=== PATIENT | male | born 1990 | race Caucasian/White ===

== ENCOUNTER 2018-02-08 17:48 | Emergency (ER) | payer SELFPAY ==
[2018-02-08 18:42] VITALS: BP 127/79
[2018-02-08] MEDS ORDERED: Tetan/Diph/Pertus SYR(Tdap)* 0.5 ML SYR(BOOSTRIX) use SYR IM ONE (18:52)
[2018-02-08] MEDS ORDERED: cefTRIAXone VIAL(*) 1,000 MG VIAL IM ONE (18:52)
--- NOTE | 2018-02-08 18:52 | UC ---
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 pt squeezed and picked at site because he can get the splints out but nothing came out. today, the spot on the finger is red and swollen plus he has a red streak up to his elbow. no hx mrsa, fever or joint pain. last tetanus is not known - History of Current Complaint Chief Complaint: UCSkin Stated Complaint: RIGHT RING FINGER CONCERN Time Seen by Provider: 02/08/18 18:37 Hx Obtained From: Patient Onset/Duration: Gradual Onset Timing: Constant Pain Intensity: 1 - Allergy/Home Medications Allergies/Adverse Reactions: Allergies Allergy/AdvReac Type Severity Reaction Status Date / Time No Known Allergies Allergy Verified 02/08/18 18:38 Home Medications: Home Medications Dextroamphetamine/Amphetamine [Adderall 20 mg Tablet] 1 tab PO TID 02/08/18 [ History Confirmed 02/08/18] PMH/Surg Hx/FS Hx/Imm Hx - Additional Past Medical History Additional PMH: ADHD - Surgical History Surgical History: None - Social History Occupation: Employed Full-time Alcohol Use: Weekly Substance Use Type: None Smoking Status (MU): Never Smoked Tobacco - Immunization History Vaccination Up to Date: Yes Review of Systems All Other Systems Reviewed And Are Negative: Yes Constitutional: Positive: Negative Skin: Positive: Negative Eyes: Positive: Negative ENT: Positive: Negative Respiratory: Positive: Negative Cardiovascular: Positive: Negative Gastrointestinal: Positive: Negative Genitourinary: Positive: Negative Motor: Positive: Negative Neurovascular: Positive: Negative Musculoskeletal: Positive: Negative Neurological: Positive: Negative Psychological: Positive: Negative Physical Exam Triage Information Reviewed: Yes Appearance: Well-Appearing Vital Signs: Initial Vital Signs Temp 98.1 F 02/08/18 18:37 Pulse 81 02/08/18 18:37 Resp 16 02/08/18 18:37 BP 127/79 02/08/18 18:37 Pulse Ox 98 02/08/18 18:37 Vital Signs Reviewed: Yes Eyes: Positive: Conjunctiva Clear ENT: Positive: Normal ENT inspection Neck: Positive: Supple, Nontender Respiratory: Positive: Lungs clear, Normal breath sounds Cardiovascular: Positive: RRR, No Murmur Abdomen Description: Positive: Nontender, No Organomegaly, Soft Bowel Sounds: Positive: Present Musculoskeletal: Positive: ROM Intact Neurological: Positive: Alert Psychological: Positive: Age Appropriate Behavior Skin Exam: Normal, Other - Red spot with tiny hole and slight swelling radial side of R 4th finger with a red streak that extends up to his elbow. No axillary or epitroclear adenopathy. Hand has full s/v/m function Diagnostics - Radiology No standard instances Radiology Interpretation Completed By: ED Physician - WET READ 4TH FINGER: STS, NO FB OR OSTEOMELITIS Course/Dx - Course Course Of Treatment: no concern for septic joint. - Differential Dx - Multi-Symptom Provider Diagnoses: INFECTION R 4TH FINGER WITH LYPHANGITIS UP TO ELBOW Discharge - Sign-Out/Discharge Documenting (check all that apply): Patient Departure All imaging exams completed and their final reports reviewed: No - Discharge Plan Condition: Stable Disposition: HOME Prescriptions: Cephalexin CAP* [Keflex CAP*] 500 mg PO TID 10 Days #30 cap Patient Education Materials: Lymphangitis (ED) Additional Instructions: RETURN HERE IN 2 DAYS FOR A RECHECK. GO TO THE ER FOR ANY WORSENING. - Billing Disposition and Condition Condition: STABLE Disposition: Home
[2018-02-08] MEDS ORDERED: Lidocaine 1% MPF* 2 ML VIAL INJ ONE (18:53)
--- NOTE | 2018-02-09 09:32 | UC ---
- Progress Note Progress Note: Patient Name: CANDICE MCKENZIE Medical Record#: [id number] Ordering Physician: Gila CASTLE Acct.#: [id number] : 1990 Age: 27 Sex: M Location: [facility] Exam Date: 02/08/181916 ADM Status: DEP ER Order Information: FINGER RIGHT RING Accession Number: [id number] CPT: 18833 Indication: Clinical concern for infection and potential foreign body at the RIGHT fourth finger. Works in machine shop. Comparison: No relevant prior exams available on the [facility] PACS for comparison. Technique: 3 views RIGHT fourth finger. REPORT AND IMPRESSION: #. No conspicuous foreign body, subcutaneous emphysema, fracture, malalignment , periosteal reaction, or other stigmata of osteomyelitis evident. Mild fusiform soft tissue swelling. R0 Preliminary Imaging Read NO DISCREPANCY <Electronically signed by Jean-Claude Soto MD in OV> 02/09/18734 Dictated By: Jean-Claude Soto MD Dictated Date/Time: 02/09/18734 Transcribed Date/Time: 02/09/18730 Copy to: CC:Gila CASTLE; No Primary Care Phys,NOPCP ; Pardeep Chapa MD Imaging - [facility] [address] [place] [address] ph ([phone]) ph ([phone]) ph ([phone]) This report is only to be considered final once signed by the Provider(s) as displayed in the "<Electronically Signed by >" field (s). Absence of a signature indicates the report is in a draft status and still needs to be finalized. In the event this document was created by someone other than the signing Provider, the individual initiating the document will be listed in the "Entered by:" or "Dictated by:" carlos. 1 of 1 Discharge - Sign-Out/Discharge Documenting (check all that apply): Post-Discharge Follow Up All imaging exams completed and their final reports reviewed: Yes - Discharge Plan Condition: Stable Disposition: HOME Prescriptions: Cephalexin CAP* [Keflex CAP*] 500 mg PO TID 10 Days #30 cap Patient Education Materials: Lymphangitis (ED) Referrals: No Primary Care Phys,NOPCP [Primary Care Provider] - Additional Instructions: RETURN HERE IN 2 DAYS FOR A RECHECK. GO TO THE ER FOR ANY WORSENING. - Billing Disposition and Condition Condition: STABLE Disposition: Home
== END 2018-02-08 19:50 | disposition home or self-care (01) ==
LOC: UCCORT 17:48
DX: I89.1 Lymphangitis (principal); L08.9 Local infection of the skin and subcutaneous tissue, unspecified; F90.9 Attention-deficit hyperactivity disorder, unspecified type
CPT/HCPCS: 73140; 90471; 90715; 96372; 99202; G0463; J0696

== ENCOUNTER 2018-03-20 07:13 | Emergency (ER) | payer BC ==
[2018-03-20 07:25] VITALS: BP 127/76
--- NOTE | 2018-03-20 07:40 | UC ---
Skin Complaint HPI - HPI Summary HPI Summary: Right hand small pustule and red streak going up the arm starting yesterday. He had a cellulitis of the right middle finger a month or so ago and he was given tdap and keflex and this resolved but he did not finish the keflex. He sqeezed some puss out of the pustule yesterday. No fever or chills. No prior known hx of MRSA. No other medical problems related to this. 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 - Allergy/Home Medications Allergies/Adverse Reactions: Allergies Allergy/AdvReac Type Severity Reaction Status Date / Time No Known Allergies Allergy Verified 03/20/18 07:25 PMH/Surg Hx/FS Hx/Imm Hx Previously Healthy: No - cellulitis. - Surgical History Surgical History: None - Family History Known Family History: Positive: Non-Contributory - Social History Occupation: Employed Full-time Alcohol Use: Weekly Substance Use Type: None Smoking Status (MU): Never Smoked Tobacco - Immunization History Vaccination Up to Date: Yes Review of Systems All Other Systems Reviewed And Are Negative: Yes Skin: Positive: Other - pustule. Physical Exam Triage Information Reviewed: Yes Appearance: Well-Appearing, No Pain Distress, Well-Nourished Vital Signs: Initial Vital Signs Temp 97.3 F 03/20/18 07:22 Pulse 92 03/20/18 07:22 Resp 18 03/20/18 07:22 BP 127/76 03/20/18 07:22 Pulse Ox 98 03/20/18 07:22 Vital Signs Reviewed: Yes Eyes: Positive: Conjunctiva Clear. Negative: Conjunctiva Inflamed ENT: Positive: Normal ENT inspection Neck: Positive: Supple, Nontender, No Lymphadenopathy Respiratory: Positive: No respiratory distress, No accessory muscle use Cardiovascular: Positive: Brisk Capillary Refill Abdomen Description: Negative: Distended Neurological: Positive: Alert, Muscle Tone Normal. Negative: Fatigued Psychological: Positive: Age Appropriate Behavior Skin: Positive: Other - small 4mm round right lateral wrist evidence of prior pustule with surrounding redness and pink streak going up the arm to the elbow. No right axillary adenopathy. Non tender. No fluctuance. Course/Dx - Course Course Of Treatment: he agrees to return immediately for fever or chills or worsening cellulitis. - Diagnoses Provider Diagnosis: Cellulitis of right upper extremity Discharge - Sign-Out/Discharge Documenting (check all that apply): Patient Departure All imaging exams completed and their final reports reviewed: No Studies - Discharge Plan Condition: Good Disposition: HOME Prescriptions: Sulfamethox/Trimethoprim DS* [Bactrim DS 800/160 TAB*] 2 tab PO BID #40 tab Patient Education Materials: Cellulitis (ED) Referrals: No Primary Care Phys,NOPCP [Primary Care Provider] - Additional Instructions: Return here immediately as we discussed if this gets worse. - Billing Disposition and Condition Condition: GOOD Disposition: Home
== END 2018-03-20 07:46 | disposition home or self-care (01) ==
LOC: UCCORT 07:13
DX: L03.113 Cellulitis of right upper limb (principal)
CPT/HCPCS: 99212; G0463